=== PATIENT | male | born 1980 | race Caucasian/White ===

== ENCOUNTER → 2022-02-14 09:58 | Outpatient (CLI) | payer MEDICAID, SELFPAY ==
--- NOTE | 2022-02-14 10:15 | ECG_ITS ---
APPROVED REPORT Exam: Resting ECG HR:64 bpm ECG Measurements Heart Rate 64 AXES CA 166 P 59 QRSd 90 QRS 52 QT 360 T 41 QTc 370 Conclusion SINUS RHYTHM NORMAL ECG UNCONFIRMED REPORT Electronically signed by : Timothy Edgar MD 02/14/2022 20:19:03
== END ==
PROVIDERS: PCP Nurse Practitioner Family; Visit Provider Nurse Practitioner Family
DX: R07.9 Chest pain, unspecified (principal)
CPT/HCPCS: 93005